=== PATIENT | male | born 1955 | race Hispanic/Latino ===

== ENCOUNTER 2018-01-04 19:39 | Emergency (ER) | payer OTHER ==
[2018-01-04 19:45] VITALS: BP 139/67; PULSE 77; RESP 16; TEMP 98.4; O2SAT 100
--- NOTE | 2018-01-04 20:26 | ED PDOC ---
Lower Extremity Pain/Injury Time Seen by Provider: 01/04/18 19:50 Chief Complaint (Nursing): Lower Extremity Problem/Injury Chief Complaint (Provider): Right toe pain History Per: Patient History/Exam Limitations: no limitations Onset/Duration Of Symptoms: Days (x7) Current Symptoms Are (Timing): Still Present Additional Complaint(s): 62 year old male presents to the ER complaining of right toe pain onset after sustaining a fall last 12/28/17. States he lost his footing while going down the stairs and injured the right foot. Now complaining of pain and bruising to the right 4th and 5th toes, and is concerned about possible fractures. Also sustained a cut to the right 3rd toe. Patient is able to ambulate. Denies any numbness or tingling. Otherwise: (-) fever (-) prior foot injury (-) loss of sensation (-) head injury. PMD: Dr. Mckeon Past Medical History Reviewed: Historical Data, Nursing Documentation, Vital Signs Vital Signs: Last Vital Signs Temp 98.4 F 01/04/18 19:44 Pulse 77 01/04/18 19:44 Resp 16 01/04/18 19:44 BP 139/67 01/04/18 19:44 Pulse Ox 100 01/04/18 19:44 - Medical History PMH: No Chronic Diseases - Family History Family History: States: Unknown Family Hx - Social History Current smoker - smoking cessation education provided: No Alcohol: None Drugs: Denies - Home Medications Home Medications: Ambulatory Orders Medication Instructions Recorded Meloxicam [Mobic] 15 mg PO DAILY #10 tablet 01/04/18 - Allergies Allergies/Adverse Reactions: Allergies Allergy/AdvReac Type Severity Reaction Status Date / Time No Known Allergies Allergy Verified 01/04/18 19:46 Review of Systems ROS Statement: Except As Marked, All Systems Reviewed And Found Negative Musculoskeletal: Positive for: Other (right toe pain, 4th and 5th toes). Negative for: Foot Pain (ankle pain) Skin: Positive for: Lesions (to right 3rd toe) Neurological: Negative for: Numbness (and tingling) Physical Exam - Reviewed Nursing Documentation Reviewed: Yes Vital Signs Reviewed: Yes - Physical Exam Appears: Positive for: Well, Non-toxic, No Acute Distress Head Exam: Positive for: ATRAUMATIC, NORMAL INSPECTION, NORMOCEPHALIC Skin: Positive for: Normal Color, Warm, Dry Eye Exam: Positive for: EOMI, Normal appearance, PERRL Neck: Positive for: Normal, Painless ROM, Supple Cardiovascular/Chest: Positive for: Regular Rate, Rhythm. Negative for: Murmur Respiratory: Positive for: Normal Breath Sounds. Negative for: Decreased Breath Sounds, Accessory Muscle Use, Respiratory Distress Pulses-Dorsalis Pedis (L): 2+ Pulses-Dorsalis Pedis (R): 2+ Extremity: Positive for: Normal ROM, Tenderness (to dorsum, proximal right 4th and 5th toes), Capillary Refill (< 2 seconds in all toes of right foot), Other ( Slight ecchymosis over the dorsum of the right 4th toe, (+) 3mm abrasion to the medial aspect of right 3rd toenail. No erythema, warmth, pus, or discharge. Sensation to foot and toes intact throughout. (-) distal NV deficit.). Negative for: Pedal Edema, Calf Tenderness, Deformity, Swelling Neurologic/Psych: Positive for: Alert, Oriented (x3), Gait (steady) - ECG O2 Sat by Pulse Oximetry: 100 (RA) Pulse Ox Interpretation: Normal Medical Decision Making Medical Decision Making: Clinical Impression: Right toe pain Time: 19:57 Plan: --X-Ray Right Foot --Reevaluation X-Ray: (+) Fractures of the proximal phalanx of the 4th and 5th toes 20:45 X-Ray findings discussed with patient, all questions answered. RICE encouraged. 4th and 5th toes buddytaped together. NV intact. Surgical shoe placed to right foot by technical advisor. Counseling was provided and all questions were answered regarding diagnosis and need for follow up with podiatry. There is agreement to discharge plan. Return if symptoms persist or worsen. Scribe Attestation: Documented by Kelin Bennett, acting as a scribe for Mariza Kunz PA-C Provider Scribe Attestation: All medical record entries made by the Scribe were at my direction and personally dictated by me. I have reviewed the chart and agree that the record accurately reflects my personal performance of the history, physical exam, medical decision making, and the department course for this patient. I have also personally directed, reviewed, and agree with the discharge instructions and disposition. Disposition - Clinical Impression Clinical Impression: Fracture of toe of right foot, Foot pain, right - Patient ED Disposition Is Patient to be Admitted: No Counseled Patient/Family Regarding: Studies Performed, Diagnosis, Need For Followup - Disposition Referrals: Brian Cuellar, ANATOLIY [Staff Provider] - Disposition: Routine/Home Disposition Time: 20:49 Condition: STABLE Prescriptions: Meloxicam [Mobic] 15 mg PO DAILY #10 tablet Instructions: Toe Fracture Forms: [facility] (Omani) Print Language: WELSH - POA Present On Arrival: Falls Or Trauma
--- NOTE | 2018-01-05 08:48 | RAD ---
PROCEDURE: Right Foot Radiographs. HISTORY: foot pain s/p fall COMPARISON: None. FINDINGS: BONES: Minimally displaced fracture of the 4th proximal phalanx metaphysis. Nondisplaced intraarticular fracture of the medial base of the 5th proximal phalanx. JOINTS: Normal. SOFT TISSUES: Fourth and 5th digit regional soft tissue swelling. OTHER FINDINGS: None. IMPRESSION: Minimally displaced fracture of the 4th proximal phalanx and nondisplaced intra-articular fracture of the base of the 5th proximal phalanx as described above.
== END 2018-01-04 20:57 | disposition home or self-care (01) ==
LOC: H.ER 19:39
DX: S92.511A Displaced fracture of proximal phalanx of right lesser toe(s), initial encounter for closed fracture (principal); X50.9XXA Other and unspecified overexertion or strenuous movements or postures, initial encounter; Y92.89 Other specified places as the place of occurrence of the external cause